=== PATIENT | female | born 1940 | race African-American/Black ===

== ENCOUNTER 2017-04-13 14:35 | Emergency (ER) | payer OTHER ==
[~2017-04-13] VITALS: Ht 160 cm; Wt 95.3 kg
[2017-04-13 14:50] VITALS: BP_SYST 138
--- NOTE | 2017-04-13 14:50 | NUR ---
Patient to ER bed 03 for evaluation. Side rails up. Report given to Min.
--- NOTE | 2017-04-13 15:00 | NUR ---
Pt presents to ED with c/o lower back pain 04/27 radiated to R hip, unrelieved after taking a [place] 10 + tylenol at home per pt. A&Ox4, denies SOB or chestpain, denies N/V/D. Skin intact, pt stated she used walker and wheelchair at home. Will continue to monitor
--- NOTE | 2017-04-13 15:02 | NUR ---
Roma mcqueenfaiza in EDM - 04/13/17 at 1533 by [email or web address] Pt presents to ED with c/o lower back pain 04/27 radiated to R hip, unrelieved after taking a [place] 10 + tylenol at home per pt. A&Oxmadelaine Nash SOB or madelaine zuniga N/V/D. Skin intact, ambulatory. Will continue to monitor
--- NOTE | 2017-04-13 15:18 | NUR ---
MD Hopson at bedside examining pt
--- NOTE | 2017-04-13 15:28 | NUR ---
Pt taken off ED for XR via wheelchair by radiologist
--- NOTE | 2017-04-13 15:30 | NUR ---
BP 222/112 , HR 72, MD Hopson notified. Will recheck BP when pt returned from XR
[2017-04-13 15:59] LABS: BILIRUBIN,URINE NEGATIVE (NEGATIVE); BLOOD, URINE NEGATIVE (NEGATIVE); CLARITY/URINE SL HAZY (CLEAR); COLOR,URINE YELLOW (YELLOW); GLUCOSE,URINE NEGATIVE (NEGATIVE); KETONES,URINE NEGATIVE (NEGATIVE); LEUKOCYTE ESTERASE ,URINE TRACE (NEGATIVE); NITRITE, URINE NEGATIVE (NEGATIVE); PH,URINE 6.5 (5.0-8.0); PROTEIN URINE NEGATIVE (NEGATIVE); UROBILINOGEN,URINE 0.2 (0.2-1.0)
--- NOTE | 2017-04-13 16:01 | NUR ---
BP 209/89, HR 67, MD Hopson aware, stated he will order medication
[2017-04-13] MEDS ORDERED: MORPHINE 2 MG/ML INJ. SYRINGE IVP ONE (16:15)
[2017-04-13] MEDS ORDERED: KETOROLAC TROMETHAMINE 15 MG VIAL IVP ONE (16:15)
[2017-04-13 16:19] LABS: BASOPHILS % (AUTO) 0.3 % (0.0-2.0); EOSINOPHILS # (AUTO) 0.2 K/uL (0.0-0.4); EOSINOPHILS % (AUTO) 3.3 % (0.0-4.0); HEMOGLOBIN 13.7 g/dL (12.0-16.0); LYMPHOCYTES # (AUTO) 1.7 K/uL (1.0-5.5); LYMPHOCYTES % (AUTO) 28.9 % (20.5-51.5); MEAN CORPUSCULAR HEMOGLOBIN 26 pg (27-31); MEAN CORPUSCULAR HGB CONC 31 % (32-36); MEAN CORPUSCULAR VOLUME 84 fL (79.0-98.0); MONOCYTES # (AUTO) 0.4 K/uL (0.0-1.0); MONOCYTES % (AUTO) 7.5 % (1.7-9.3); NEUTROPHILS # (AUTO) 3.6 K/uL (1.8-7.7); PLATELET COUNT (AUTO) 220 K/uL (130-430); RED BLOOD CELL COUNT(AUTO) 5.22 MIL/uL (4.2-6.2); RED CELL DISTRIBUTION WIDTH 13.8 % (9.0-15.0); WHITE BLOOD COUNT (AUTO) 5.9 K/uL (4.8-10.8)
[2017-04-13 16:24] LABS: ANION GAP 8 (5-15); CALCIUM 9.6 mg/dL (8.4-11.0); CHLORIDE 101 mmol/L (98-107); CREATININE 1.11 mg/dL (0.55-1.30); GLUCOSE 217 mg/dL (70-99); SODIUM SERUM 138 mmol/L (136-145); UREA NITROGEN, BLOOD 13 mg/dL (8-21)
--- NOTE | 2017-04-13 16:30 | NUR ---
BP 190/87, HR 67, MD Hopson notified. MD Hopson acknowledged, no order was received
[2017-04-13 16:32] LABS: ALANINE AMINOTRANSFERASE 19 U/L (12-78); ALBUMIN 3.5 g/dL (3.4-4.8); ASPARTATE AMINOTRANSFERASE 22 U/L (10-37); TOTAL BILIRUBIN 0.5 mg/dL (0.0-1.0); TOTAL PROTEIN, SERUM 8.5 g/dL (6.4-8.3)
[2017-04-13 16:36] LABS: BACTERIA,URINE FEW /HPF (None Seen); MUCUS,URINE None Seen /LPF (None Seen); RBC,URINE NONE SEEN /HPF (0-3)
[2017-04-13 16:50] VITALS: BP_SYST 186
--- NOTE | 2017-04-13 16:50 | NUR ---
Patient given written and verbal discharge instructions and verbalizes understanding. ER MD Hopson discussed with patient the results and treatment provided. Patient in stable condition. ID arm band removed. IV catheter removed intact and dressing applied, no active bleeding. Rx of tramadol, naproxen given. Patient educated on pain management and to follow up with PMD. Pain Scale 2/10. Opportunity for questions provided and answered. MD Hopson stated it is ok to discharge pt
== END 2017-04-13 16:50 | disposition home or self-care (01) ==
LOC: SED 14:35
DX: G89.29 Other chronic pain (principal); M54.5 Low back pain
CPT/HCPCS: 36415; 72100; 80053; 81000; 84484; 85025; 87086; 96374; 96375; 99285; J1885; J2270